=== PATIENT | female | born 1965 | race Caucasian/White ===

== ENCOUNTER 2017-05-23 19:45 | Inpatient (IN) | payer BC ==
[~2017-05-23] VITALS: Ht 165.1 cm; Wt 78.0 kg
[~2017-05-23 19:45] MED LIST: ADVAIR 250-501 EACH INH; ALBUTEROL2.5 MG/0.5 INH; AMBIEN 10 MG TA10 MG PO; BENTYL20 MG PO; CIPROFLOXACIN500 M1 PO; DOXYCYCLINE 10100 MG PO; DUONEB 2.5-0.5 M3 ML INH; HYDROCODONE-AP1 EAC6 PO; LEVAQUIN 500 M500 M2 PO; LEVAQUIN 750 M750 MG PO; NAPROSYN500 MG PO; NORCO 5-325 TA1 EACH PO; PREDNISONE 10 M10 MG PO; PREDNISONE50 MG PO; PROAIR HFA8.5 GM IH; PROMETHAZINE12.5 M1 PO; PROVENTIL HFA6.7 G1 INH; SYMBICORT160 MCG/4. INH; SYNTHROID200 MCG PO; ULTRAM 50MG TAB50 MG PO; VENTOLIN HFA 1818 GM INH; XANAX 0.5 MG0.5 M1 PO; XANAX 0.5 MG0.5 MG PO; ZOLOFT100 MG PO; hydrocodone
[2017-05-23 19:53] VITALS: BP 143/78
[2017-05-23] MEDS ORDERED: SUBOXONE 8 MG-1 EAC3 SUBLING (19:56)
[2017-05-23 20:26] LABS: INFLUENZA A ANTIGEN None Detected (None Detect); INFLUENZA B ANTIGEN None Detected (None Detect)
[2017-05-23 20:26] LABS: ABSOLUTE BASOPHILS 0.1 thou/uL (0.0-0.2); ABSOLUTE EOSINOPHILS 0.1 thou/uL (0.0-0.7); ABSOLUTE LYMPHOCYTES 2.7 thou/uL (0.8-5.3); ABSOLUTE MONOCYTES 0.5 thou/uL (0.0-1.2); ABSOLUTE NEUTROPHILS 4.4 thou/uL (1.6-8.1); BASOPHILS 0.8 %; EOSINOPHILS 1.4 %; HEMATOCRIT 36.8 % (37.0-47.0); HEMOGLOBIN 12.1 gm/dL (12.0-15.0); LYMPHOCYTES 34.3 %; MCH 28.4 pg (26.0-34.0); MCHC 32.9 g/dL (28.0-37.0); MCV 86.4 fL (80.0-100.0); MONOCYTES 6.7 %; MPV 7.8 fl. (7.2-11.1); NUCLEATED RBCS 0 /100WBC; PLATELET COUNT* 271 thou/uL (150-400); POLYS 56.8 %; RBC 4.26 mil/uL (4.20-5.00); RDW-CV 15.2 % (10.5-14.5); WBC 7.8 thou/uL (4.0-11.0)
[2017-05-23 20:32] LABS: CREATININE 0.6 mg/dL (0.6-1.3); POTASSIUM 3.4 mmol/L (3.5-5.1)
[2017-05-23 20:37] LABS: ALBUMIN 3.7 g/dL (3.4-5.0); TOTAL BILIRUBIN 0.4 mg/dL (<0.1-1.0); TOTAL PROTEIN 7.2 g/dL (6.4-8.2)
[2017-05-23 23:49] LABS: BE 3.7 mmol/L (-2 to +3); pH 7.338 (7.340-7.450)
[2017-05-23 23:54] LABS: PO2 163.9 mmHg (75.0-100.0)
[2017-05-24 00:06] VITALS: BP 93/57
[2017-05-24 04:00] VITALS: BP 110/68
[2017-05-24 04:31] LABS: BE 3.4 mmol/L (-2 to +3); PO2 76.5 mmHg (75.0-100.0); pH 7.357 (7.340-7.450)
[2017-05-24 04:32] LABS: PCO2 54.7 mmHg (35.0-45.0)
[2017-05-24 05:12] LABS: HEMATOCRIT 36.5 % (37.0-47.0); MCH 28.1 pg (26.0-34.0); MCHC 32.8 g/dL (28.0-37.0); MCV 85.6 fL (80.0-100.0); MPV 7.9 fl. (7.2-11.1); RBC 4.26 mil/uL (4.20-5.00); RDW-CV 15.1 % (10.5-14.5)
[2017-05-24 05:42] LABS: ALBUMIN 3.8 g/dL (3.4-5.0); CREATININE 0.7 mg/dL (0.6-1.3); POTASSIUM 4.1 mmol/L (3.5-5.1); TOTAL BILIRUBIN 0.3 mg/dL (<0.1-1.0)
[2017-05-24 10:00] VITALS: BP 105/65
[2017-05-24 11:04] VITALS: BP 103/68
[2017-05-24 16:03] VITALS: BP 108/57
[2017-05-24 19:40] VITALS: BP 103/60
[2017-05-25] VITALS: BP 95/54
[2017-05-25 04:54] LABS: HEMATOCRIT 32.5 % (37.0-47.0); HEMOGLOBIN 10.7 gm/dL (12.0-15.0); MCH 28.2 pg (26.0-34.0); MCV 85.3 fL (80.0-100.0); MPV 7.8 fl. (7.2-11.1); NUCLEATED RBCS 0 /100WBC; PLATELET COUNT* 255 thou/uL (150-400); RBC 3.81 mil/uL (4.20-5.00); WBC 9.3 thou/uL (4.0-11.0)
[2017-05-25 04:59] VITALS: BP 96/54
[2017-05-25 05:39] LABS: CALCIUM 8.8 mg/dL (8.5-10.1); CREATININE 0.6 mg/dL (0.6-1.3); POTASSIUM 3.8 mmol/L (3.5-5.1)
[2017-05-25 06:07] LABS: ABSOLUTE LYMPHOCYTES 0.7 thou/uL (0.8-5.3); ABSOLUTE MONOCYTES 0.3 thou/uL (0.0-1.2); ABSOLUTE NEUTROPHILS 8.4 thou/uL (1.6-8.1)
[2017-05-25 06:08] LABS: ANISOCYTOSIS 1+; PLATELET ESTIMATE ADEQUATE; POLYCHROMASIA 1+
[2017-05-25 08:00] VITALS: BP 112/68
--- NOTE | 2017-05-25 10:33 | CON ---
[address] [address] CONSULTATION Name: BATSHEVA PARISH Room: [address] IN M.R.#: [id number] Admission: 05/23/17 Attend Phys: Bhanu Thompson Discharge: Date of : 65 Report #: [id number] THIS REPORT FOR: //name// CC: Nate Balderrama HISTORY OF PRESENT ILLNESS: The patient is a 52-year-old female patient with history of smoking. She told me she started smoking in her 20s and she still smokes daily. She had been told before she has COPD. She presented to the hospital with 1-week history of increasing shortness of breath, cough and wheezes. She always has some wheeze, according to her, but the cough is new. It is becoming productive of yellowish sputum. She feels it is thick and sometimes had difficulty producing any sputum up. She denied any nasal discharge, obstruction or drainage. She denied any sore throat, but she told me she had a nephew who had some symptoms of upper respiratory tract infection recently. She denied any PND or orthopnea. She denied any lower extremity edema. She was in significant respiratory distress when she came into the ER, apparently she was at urgent care and her O2 saturation was in the 70s. When she came to the ER, she was in hypercapnic and hypoxic respiratory failure and she was placed on BiPAP. She told me, in the past she was prescribed oxygen. She still has the oxygen equipment at home that she does not use. PAST MEDICAL HISTORY: COPD, history of smoking; history of insomnia and there is a history of opioid abuse, on Suboxone. PAST SURGICAL HISTORY: She had tubal ligation, bladder surgery, gallbladder surgery and D and C. She had also left ear surgery. SOCIAL HISTORY: She continues to smoke 1 pack per day, does not drink alcohol. Does not abuse drugs currently, but she is on Suboxone. FAMILY HISTORY: Reviewed with the patient, noncontributory. HOME MEDICATIONS: She is on sertraline, levothyroxine, alprazolam. She is on Symbicort, albuterol inhaler, albuterol nebulizer. ALLERGIES: No known drug allergies. REVIEW OF SYSTEMS: Twelve-system reviewed with the patient and negative other than those mentioned above. PHYSICAL EXAMINATION: VITAL SIGNS: When I saw her, she was on oxygen by nasal cannula with saturation 98%, blood pressure 105/55, breathing around 20-25 times a minute, pulse rate of 70, afebrile. Temperature 36.4. [place] [address] CONSULTATION Name: ALDO PARISHLINE ADELINA Room: [address] M.R.#: [id number] Admission: 05/23/17 Attend Phys: Bhanu Thompson Discharge: Date of : 65 Report #: [id number] GENERAL: Anxious lady, awake, alert, speaks in full sentences. Mild respiratory distress, some episodes of cough during my evaluation. HEAD: Normocephalic, atraumatic. EYES: Pupils equal, reactive to light. Extraocular movement intact, not pale, no jaundice. External ear looks healthy and normal. ORAL CAVITY: Mallampati of 2. NECK: Supple. No lymphadenopathy. Trachea central. CHEST: Diminished air movement bilaterally, prolonged expiratory phase with wheezes and some crackles at the bases. HEART: S1, S2. No murmur, no gallop. ABDOMEN: Benign, soft, lax, nontender. EXTREMITIES: Lower extremity: No edema, no calf tenderness. SKIN: Normal for age and race, no rash. PSYCHIATRIC: Mood and affect anxious. Good insight and judgment. NEUROLOGIC: Moving 4 extremities spontaneously. No focal weakness. Cranial nerves grossly normal. LYMPHATICS: No palpable lymph nodes. LABORATORY DATA: She has 2 sets of ABGs. Initially ABG 7.33/ /163. A repeat ABG this morning 7.35/54/76 and this was done on BiPAP. Her creatinine is 0.7, BUN of 7, bicarbonate 33, chloride 100, sodium 141. Her white blood count 7.8, hemoglobin 12.1, platelet 271. Her chest x-ray did not show acute infiltrate, but showed emphysematous changes. IMPRESSION: 1. Acute hypercapnic and hypoxic respiratory failure, most likely chronic. She was prescribed oxygen in the past. 2. Chronic obstructive pulmonary disease exacerbation. 3. Likely viral upper respiratory tract infection. PLAN: 1. At this point, the patient will be on scheduled nebulization treatment. Continue the IV steroids every 8 hours. Continue antibiotics. Continue the BiPAP during sleep and p.r.n. I did licensed mental health counselor the patient over the proper use of the BiPAP. She is apprehensive about continuing to the use at this point, she is still bronchospastic. I anticipate she will need a few more days of inpatient care. 2. Wean oxygen down. Thank you for the consult. We will follow along with you. Discussed with the patient and her . <ELECTRONICALLY SIGNED> By: Kristi Maza MD 05/25/17 1033 1055 [id number] Maza MD /marlene
[2017-05-25 12:00] VITALS: BP 98/60
[2017-05-25 15:21] VITALS: BP 90/48
[2017-05-25 20:10] VITALS: BP 114/70
[2017-05-26 00:06] VITALS: BP 104/63
[2017-05-26 04:06] VITALS: BP 105/56
[2017-05-26 05:18] LABS: ABSOLUTE LYMPHOCYTES 1.1 thou/uL (0.8-5.3); ABSOLUTE MONOCYTES 0.3 thou/uL (0.0-1.2); BASOPHILS 0.3 %; HEMATOCRIT 31.7 % (37.0-47.0); HEMOGLOBIN 10.1 gm/dL (12.0-15.0); LYMPHOCYTES 9.8 %; MCH 27.6 pg (26.0-34.0); MCHC 31.9 g/dL (28.0-37.0); MCV 86.5 fL (80.0-100.0); MONOCYTES 2.5 %; NUCLEATED RBCS 0 /100WBC; PLATELET COUNT* 264 thou/uL (150-400); POLYS 87.4 %; RBC 3.66 mil/uL (4.20-5.00); RDW-CV 15.3 % (10.5-14.5); WBC 11.4 thou/uL (4.0-11.0)
[2017-05-26 06:01] LABS: ALBUMIN 3.1 g/dL (3.4-5.0); CALCIUM 8.4 mg/dL (8.5-10.1); CREATININE 0.6 mg/dL (0.6-1.3); TOTAL BILIRUBIN 0.1 mg/dL (<0.1-1.0)
[2017-05-26 08:00] VITALS: BP 110/65
[2017-05-26] MEDS ORDERED: DUONEB 2.5-0.5 M3 ML INH (10:08)
[2017-05-26] MEDS ORDERED: PROTONIX40 M1 PO (10:11)
[2017-05-26] MEDS ORDERED: LEVAQUIN 500 M500 M2 PO (10:12)
[2017-05-26] MEDS ORDERED: PREDNISONE 10 M10 MG PO (10:15)
[2017-05-26 10:16] VITALS: BP 105/56
== END 2017-05-26 11:30 | disposition home or self-care (01) | DRG 189 ==
LOC: M.ERS 19:45 → M.2W 21:54 → M.TBA-ER 21:54 → M.2W 05-24 00:05
PROVIDERS: Emergency Medicine; Internal Medicine; ADMIT Internal Medicine
PROC: 5A09357 Assistance with Respiratory Ventilation, Less than 24 Consecutive Hours, Continuous Positive Airway Pressure (ICD-10-PCS; principal; 2017-05-24)
DX: J96.22 Acute and chronic respiratory failure with hypercapnia (principal); J44.1 Chronic obstructive pulmonary disease with (acute) exacerbation; J96.21 Acute and chronic respiratory failure with hypoxia; F17.210 Nicotine dependence, cigarettes, uncomplicated; G47.00 Insomnia, unspecified; Z79.899 Other long term (current) drug therapy

== ENCOUNTER 2018-04-28 12:40 | Inpatient (IN) | payer BC ==
[~2018-04-28] VITALS: Ht 160 cm; Wt 79.4 kg
[~2018-04-28 12:40] MED LIST changes: +PROTONIX40 M1 PO; +SUBOXONE 8 MG-1 EAC3 SUBLING
[2018-04-28 12:42] VITALS: BP 126/66
[2018-04-28 13:12] LABS: ABSOLUTE MONOCYTES 0.4 thou/uL (0.0-1.2); ABSOLUTE NEUTROPHILS 1.7 thou/uL (1.6-8.1); BASOPHILS 0.8 %; HEMATOCRIT 40.2 % (37.0-47.0); LYMPHOCYTES 47.8 %; MCH 26.8 pg (26.0-34.0); MCHC 32.3 g/dL (28.0-37.0); MONOCYTES 9.1 %; MPV 7.3 fl. (7.2-11.1); NUCLEATED RBCS 0 /100WBC; PLATELET COUNT* 203 thou/uL (150-400); POLYS 41.3 %; RBC 4.84 mil/uL (4.20-5.00); RDW-CV 15.9 % (10.5-14.5); WBC 4.2 thou/uL (4.0-11.0)
[2018-04-28 13:25] LABS: INFLUENZA A ANTIGEN None Detected (None Detect); INFLUENZA B ANTIGEN None Detected (None Detect)
[2018-04-28 13:30] LABS: ANION GAP 3 mmol/L (7-16); BUN 15 mg/dL (7-18); CALCIUM 8.8 mg/dL (8.5-10.1); CHLORIDE 100 mmol/L (98-107); CO2 36 mmol/L (21-32); CREATININE 0.6 mg/dL (0.6-1.3); GLUCOSE 95 mg/dL (70-99); POTASSIUM 3.8 mmol/L (3.5-5.1); SODIUM 139 mmol/L (136-145); TROPONIN-I LEVEL <0.06 ng/mL (<0.06)
[2018-04-28 13:31] LABS: ALBUMIN 3.7 g/dL (3.4-5.0); ALKALINE PHOSPHATASE 72 U/L (46-116); NT-PRO BRAIN NAT PEPTIDE 71 pg/mL (<300); SGOT 20 U/L (15-37); SGPT 29 U/L (30-65); TOTAL BILIRUBIN 0.4 mg/dL (<0.1-1.0); TOTAL PROTEIN 6.9 g/dL (6.4-8.2)
[2018-04-28 15:06] VITALS: BP 103/63
[2018-04-28 15:37] VITALS: BP 109/75
[2018-04-28 16:38] LABS: BE 7.2 mmol/L (-2 to +3); PCO2 46.9 mmHg (35.0-45.0); pH 7.455 (7.340-7.450)
[2018-04-28 16:41] LABS: PO2 59.7 mmHg (75.0-100.0)
[2018-04-28 20:00] VITALS: BP 109/69
[2018-04-28 22:00] VITALS: BP 128/88
[2018-04-28 23:48] VITALS: BP 115/79
[2018-04-29 04:00] VITALS: BP 125/81
[2018-04-29 08:00] VITALS: BP 112/79
[2018-04-29 11:51] VITALS: BP 117/84
[2018-04-29 16:00] VITALS: BP 103/66
[2018-04-29 20:00] VITALS: BP 112/62
[2018-04-30] VITALS: BP 111/68
[2018-04-30 04:00] VITALS: BP 109/62
--- NOTE | 2018-04-30 07:12 | CON ---
[address] [address] CONSULTATION Name: BATSHEVA PARISH Room: [address] IN ..#: [id number] Admission: 04/28/18 Attend Phys: Celena Christianson MD Discharge: Date of : 65 Report #: [id number] THIS REPORT FOR: //name// CC: Chasity Christianson MD DATE OF SERVICE: 04/29/2018 She is in room #223. HISTORY: The patient is a 53-year-old female, current smoker with COPD. She has oxygen at home. She wears it p.r.n. She has nebulizers at home and takes them as needed. She has been sick for the last 4 days. Denies any sick or ill contacts at least at this time. States she has been working and occasionally at work, somebody will be sick. She states she did not get a flu shot this year. She states she has 1 or 2 exacerbations a year. Last time she was in the hospital was 2 or 3 years ago. Denies any esophageal reflux. Denies much sinus drainage at this time. She states she is chronically short of breath at home. PAST MEDICAL HISTORY: Has a history of COPD, [id number] in nature. Oxygen dependent usually at night. Denies daytime use and also has a history of musculoskeletal lumbar strain, some right hip strain and osteoarthritis. There is a questionable history of opioid use and abuse in the past, has been on Suboxone in the past. Other past medical history includes insomnia, COPD, history of opioid abuse, on Suboxone. PAST SURGICAL HISTORY: Tubal ligation in 1992, cholecystectomy 1990, miscarriage in 1989. OUTPATIENT MEDICATIONS: Included DuoNeb treatments, Protonix, Levaquin 500 mg daily, and a prednisone taper. She has been on buprenorphine and naloxone, Suboxone 8 mg 1 tablet sublingual t.i.d. at home. FAMILY HISTORY: Negative for premature cardiopulmonary disease. SOCIAL HISTORY: She is and lives with her in [place], [place]. Current smoker of 1 pack a day, has a 35-40 pack year history of smoking. Denies any alcohol use, some history of opioid use and abuse in the past. REVIEW OF SYSTEMS: A 14-point review of systems reviewed and negative except for pertinent positives noted in HPI. PHYSICAL EXAMINATION: [place] [address] CONSULTATION Name: BATSHEVA PARISH Room: [address] IN [facility]#: [id number] Admission: 04/28/18 Attend Phys: Celena Christianson MD Discharge: Date of : 65 Report #: [id number] GENERAL: This is a 53-year-old female who is now on BiPAP just recently. She was on 4 liters with sats doing fair at 88-90. She was more short of breath this morning, so she is on BiPAP initially 10/5 and 100%. We then changed her to 60% and 12/6 with a backup rate of 16. VITAL SIGNS: Blood pressure is 112/78, heart rate is 60, respirations were 16-20, not labored on the BiPAP. Temperature is 36.8 degrees. She is 5 feet 4 inches tall, weight 72 kilograms or 160 pounds, BMI is 28. HEENT: Unremarkable. She has a full facemask in place. Mucous membranes are moist. NECK: Supple, without nodes. No increase in jugular venous pressure. CHEST: Shows markedly diminished breath sounds, prolonged expiratory phase, a few rhonchi noted. CARDIOVASCULAR: Regular rate and rhythm without murmur, gallop or rub. Heart rate is 72. ABDOMEN: Soft, obese without masses or megaly. EXTREMITIES: No calf tenderness. No cyanosis, clubbing or edema. NEUROLOGIC: Grossly intact at the bedside. She moves all fours and alert and oriented. No motor deficits. LABORATORY DATA: From 04/28/2018 show hemoglobin 13, white count 4200 with mild lymphocyte predominance, platelet counts 203,000, 41% segmented neutrophils, 48% lymphocytes with an absolute lymphocyte count of 2000. Eosinophils were 0. Sodium is 139, potassium is 3.8, bicarbonate is elevated at 36, BUN 15, creatinine 0.6 and GFR was 105, glucose is 95 and ALT is 29, albumin is 3.7. ABGs yesterday evening on 3 liters showed a pO2 of 60, a pH of 7.45, pCO2 is 47, bicarbonate is 32, sat is 92%. Carboxyhemoglobin was 0.2. Chest x-ray shows COPD, hyperinflation, some lower lobe atelectatic changes. No echo on this patient. IMPRESSION: 1. Moderately severe to severe chronic obstructive pulmonary disease, oxygen dependent, becoming a nebulizer and steroid dependent. 2. Chronic tobacco use. 3. History of opioid use in the past, on Suboxone at this time. PLAN: Would continue same therapy, continuing on with steroids, add montelukast, add some oral albuterol tablets soon when she was eating, keep her n.p.o. for a couple of hours, keep her on a BiPAP at 50% 12/6 with a backup rate of 16. We will recheck some blood gases in the morning. I talked with the nurse, Arthur, and also the respiratory therapist. We will leave her on the floor at this time on BiPAP for the next couple of hours. If she should deteriorate or get worse, we will transfer to the ICU with the idea we would intubate her, possibly a 35% Ventimask might be helpful, keep her CO2 retention down. We will try for 4-5 liters and see where she goes with that. No history of sleep apnea at home, but certainly needs steroids and the antibiotics including azithromycin and ceftriaxone. Flu workup is negative so far. Again, [place] [address] CONSULTATION Name: BATSHEVA PARISH Room: [address] IN ..#: [id number] Admission: 04/28/18 Attend Phys: Celena Christianson MD Discharge: Date of : 65 Report #: [id number] encouraged the patient to discontinue smoking and may need full PFTs as an outpatient and possibly some pulmonary rehab. Thanks again for allowing us to participate in this lady's care. This has been a [address] consult with moderate to severe complexity and medical decision making. <ELECTRONICALLY SIGNED> By: Fredis Madrid MD 04/30/18 0712 1040 [id number] Madrid MD /nt
[2018-04-30 08:00] VITALS: BP 121/77
[2018-04-30 09:23] LABS: BE 5.4 mmol/L (-2 to +3); PCO2 45.6 mmHg (35.0-45.0)
[2018-04-30 09:26] LABS: PO2 53.3 mmHg (75.0-100.0)
--- NOTE | 2018-04-30 14:59 | EKG ---
[place] [address] ELECTROCARDIOGRAM REPORT Name: BATSHEVA PARISH Room: [address] ADM IN .R.#: [id number] Admission: 04/28/18 Attend Phys: Celena Christianson MD Discharge: Date of : 65 Report #: [id number] THIS REPORT FOR: //name// 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 [place] : 1965 Requested By: Magno Machuca Order Number: [id number] MD: Trent Funk Measurements Intervals [place] Rate: 82 P: 26 MA: 44 QRS: -2 QRSD: 91 T: 38 QT: 475 QTc: 555 Interpretive Statements Sinus rhythm Short MA interval Possible anterior infarct, age indeterminate Prolonged QT interval Low voltage QRS Compared to ECG 10/20/2014 12:17:15 Short MA interval now present Myocardial infarct finding now present Prolonged QT interval now present ST (T wave) deviation no longer present Possible ischemia no longer present Electronically Signed On 04-30-2018 14:59:16 CDT by Trent Funk [email or web address] <ELECTRONICALLY SIGNED> By: Trent Funk MD, FACC 04/30/18 1459 1342 1342 Trent Funk MD, FAC /EPI
[2018-04-30 16:24] VITALS: BP 118/71
[2018-04-30 20:00] VITALS: BP 123/87
[2018-05-01] VITALS: BP 116/69
[2018-05-01 04:23] LABS: HEMATOCRIT 33.3 % (37.0-47.0); MCH 26.6 pg (26.0-34.0); MCHC 32.2 g/dL (28.0-37.0); MCV 82.5 fL (80.0-100.0); MPV 7.8 fl. (7.2-11.1); RBC 4.04 mil/uL (4.20-5.00); RDW-CV 16.1 % (10.5-14.5); WBC 12.4 thou/uL (4.0-11.0)
[2018-05-01 04:38] LABS: CALCIUM 8.7 mg/dL (8.5-10.1); CREATININE 0.6 mg/dL (0.6-1.3); MAGNESIUM 2.2 mg/dL (1.8-2.4); POTASSIUM 3.8 mmol/L (3.5-5.1)
[2018-05-01 04:49] LABS: HEMOGLOBIN 10.7 gm/dL (12.0-15.0)
[2018-05-01 06:20] LABS: PCO2 42.1 mmHg (35.0-45.0); PO2 83.4 mmHg (75.0-100.0)
[2018-05-01 07:30] VITALS: BP 122/75
[2018-05-01 11:49] VITALS: BP 114/76
[2018-05-01 18:26] VITALS: BP 127/66
[2018-05-01 20:00] VITALS: BP 131/71
[2018-05-02] VITALS: BP 123/70
[2018-05-02 04:00] VITALS: BP 125/76
[2018-05-02 08:00] VITALS: BP 127/80
[2018-05-02 17:28] VITALS: BP 131/75
[2018-05-02 20:50] VITALS: BP 128/66
[2018-05-03 08:00] VITALS: BP 136/76
[2018-05-03] MEDS ORDERED: IPRAT-ALBUT 0.5-3 ML INH (10:24)
[2018-05-03] MEDS ORDERED: MELATONIN5 M1 PO (10:24)
[2018-05-03] MEDS ORDERED: BROVANA15 MCG/2 M INH (10:24)
[2018-05-03] MEDS ORDERED: SINGULAIR 10 MG10 M1 PO (10:24)
[2018-05-03] MEDS ORDERED: SYNTHROID100 MC1 PO (10:24)
[2018-05-03] MEDS ORDERED: PREDNISONE 10 M10 MG PO (10:24)
[2018-05-03] MEDS ORDERED: BENZONATATE100 MG PO (10:24)
[2018-05-03] MEDS ORDERED: CEFDINIR300 MG PO (10:24)
[2018-05-03 12:39] VITALS: BP 136/76
[2018-05-03 13:20] VITALS: BP 136/76
[2018-05-03 13:42] VITALS: BP 136/76
[2018-05-03 14:11] VITALS: BP 136/76
== END 2018-05-03 14:12 | disposition home health service (06) | DRG 189 ==
LOC: M.ERS 12:40 → M.TBA-ER 13:36 → M.2W 13:36 → M.ORTHSURG 13:36 → M.2W 21:55 → M.ORTHSURG 05-02 21:07
PROVIDERS: Emergency Medicine Emergency Medical Services; Internal Medicine Pulmonary Disease; ADMIT Internal Medicine
PROC: 5A09357 Assistance with Respiratory Ventilation, Less than 24 Consecutive Hours, Continuous Positive Airway Pressure (ICD-10-PCS; principal; 2018-04-29)
PROC: 5A09357 Assistance with Respiratory Ventilation, Less than 24 Consecutive Hours, Continuous Positive Airway Pressure (ICD-10-PCS; 2018-04-30)
PROC: 5A09357 Assistance with Respiratory Ventilation, Less than 24 Consecutive Hours, Continuous Positive Airway Pressure (ICD-10-PCS; 2018-05-01)
PROC: 5A09357 Assistance with Respiratory Ventilation, Less than 24 Consecutive Hours, Continuous Positive Airway Pressure (ICD-10-PCS; 2018-05-02)
DX: J96.21 Acute and chronic respiratory failure with hypoxia (principal); J44.1 Chronic obstructive pulmonary disease with (acute) exacerbation; M16.11 Unilateral primary osteoarthritis, right hip; F17.210 Nicotine dependence, cigarettes, uncomplicated; E03.9 Hypothyroidism, unspecified; G47.00 Insomnia, unspecified; Z90.49 Acquired absence of other specified parts of digestive tract; Z99.81 Dependence on supplemental oxygen; Z79.52 Long term (current) use of systemic steroids; Z91.14 Patient's other noncompliance with medication regimen; Z79.899 Other long term (current) drug therapy

== ENCOUNTER 2020-05-13 08:13 | Emergency (ER) | payer BC ==
[~2020-05-13] VITALS: Ht 157.5 cm; Wt 74.8 kg
[~2020-05-13 08:13] MED LIST changes: +BENZONATATE100 MG PO; +BROVANA15 MCG/2 M INH; +CEFDINIR300 MG PO; +IPRAT-ALBUT 0.5-3 ML INH; +MELATONIN5 M1 PO; +SINGULAIR 10 MG10 M1 PO; +SYNTHROID100 MC1 PO
[2020-05-13 08:38] LABS: ABSOLUTE BASOPHILS 0.1 thou/uL (0.0-0.2); ABSOLUTE EOSINOPHILS 0.2 thou/uL (0.0-0.7); ABSOLUTE LYMPHOCYTES 4.6 thou/uL (0.8-5.3); ABSOLUTE MONOCYTES 0.5 thou/uL (0.0-1.2); ABSOLUTE NEUTROPHILS 3.8 thou/uL (1.6-8.1); BASOPHILS 0.6 %; EOSINOPHILS 2.6 %; HEMATOCRIT 30.4 % (37.0-47.0); HEMOGLOBIN 9.5 gm/dL (12.0-15.0); LYMPHOCYTES 49.7 %; MCHC 31.1 g/dL (28.0-37.0); MCV 83.7 fL (80.0-100.0); MONOCYTES 5.4 %; MPV 7.3 fl. (7.2-11.1); NUCLEATED RBCS 0 /100WBC; PLATELET COUNT* 299 thou/uL (150-400); POLYS 41.7 %; RBC 3.63 mil/uL (4.20-5.00); RDW-CV 16.4 % (10.5-14.5); WBC 9.2 thou/uL (4.0-11.0)
[2020-05-13 08:46] LABS: ANION GAP < 0 mmol/L (7-16); BUN 21 mg/dL (7-18); CALCIUM 8.6 mg/dL (8.5-10.1); CHLORIDE 103 mmol/L (98-107); CO2 41 mmol/L (21-32); CREATININE 0.5 mg/dL (0.6-1.3); GLUCOSE 132 mg/dL (70-99); POTASSIUM 3.6 mmol/L (3.5-5.1); SODIUM 143 mmol/L (136-145)
[2020-05-13 08:48] LABS: APTT 28.2 Seconds (25.0-31.3); PROTIME 10.6 Seconds (9.20-11.50)
[2020-05-13 09:01] LABS: ALBUMIN 3.8 g/dL (3.4-5.0); ALKALINE PHOSPHATASE 68 U/L (46-116); LIPASE 85 U/L (73-393); MAGNESIUM 2.2 mg/dL (1.8-2.4); NT-PRO BRAIN NAT PEPTIDE 38 pg/mL (<300); SGOT 11 U/L (15-37); SGPT 13 U/L (30-65); TOTAL BILIRUBIN 0.2 mg/dL (<0.1-1.0)
[2020-05-13] MEDS ORDERED: PREDNISONE 20 M20 M1 PO (09:07)
[2020-05-13] MEDS ORDERED: ZPAK PO (09:07)
[2020-05-13 10:30] VITALS: BP 112/64
--- NOTE | 2020-05-14 10:03 | EKG ---
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: : 1965 Requested By: Bonifacio Cool Order Number: [id number] MD: Mello Christie Measurements Intervals [place] Rate: 92 P: 80 CO: 152 QRS: 4 QRSD: 68 T: QT: 441 QTc: 546 Interpretive Statements Sinus rhythm Low voltage, precordial leads Nonspecific T abnormalities, lateral leads Prolonged QT interval Baseline wander in lead(s) V5 Compared to ECG 04/28/2018 13:42:17 T-wave abnormality now present Short CO interval no longer present Myocardial infarct finding no longer present Electronically Signed On 05-14-2020 10:03:41 CDT by Mello Christie [email or web address] <ELECTRONICALLY SIGNED> By: Mello Christie MD, [facility] 05/14/20 1003 9 9 Mello Christie MD, [facility] /EPI
== END 2020-05-13 10:31 | disposition home or self-care (01) ==
LOC: M.ERS 08:13
PROVIDERS: Family Medicine
DX: J96.90 Respiratory failure, unspecified, unspecified whether with hypoxia or hypercapnia (principal); Z20.822 Contact with and (suspected) exposure to COVID-19; J44.1 Chronic obstructive pulmonary disease with (acute) exacerbation; J18.9 Pneumonia, unspecified organism; J44.9 Chronic obstructive pulmonary disease, unspecified; F17.210 Nicotine dependence, cigarettes, uncomplicated; Z98.51 Tubal ligation status; Z90.49 Acquired absence of other specified parts of digestive tract; Z79.899 Other long term (current) drug therapy

== ENCOUNTER 2020-05-26 11:53 | Emergency (ER) | payer BC ==
[~2020-05-26] VITALS: Ht 157.5 cm; Wt 74.8 kg
[~2020-05-26 11:53] MED LIST changes: +PREDNISONE 20 M20 M1 PO; +ZPAK PO
[2020-05-26 12:47] VITALS: BP 107/67
== END 2020-05-26 12:49 | disposition home or self-care (01) ==
LOC: M.ERS 11:53
DX: T20.29XA Burn of second degree of multiple sites of head, face, and neck, initial encounter (principal); T31.0 Burns involving less than 10% of body surface; J44.9 Chronic obstructive pulmonary disease, unspecified; F17.210 Nicotine dependence, cigarettes, uncomplicated; X08.8XXA Exposure to other specified smoke, fire and flames, initial encounter; Y93.89 Activity, other specified; Y92.89 Other specified places as the place of occurrence of the external cause; Y99.8 Other external cause status

== ENCOUNTER 2020-07-02 12:58 | Emergency (ER) | payer BC ==
[~2020-07-02] VITALS: Ht 157.5 cm; Wt 72.6 kg
[2020-07-02 13:24] LABS: ABSOLUTE BASOPHILS 0.1 thou/uL (0.0-0.2); ABSOLUTE EOSINOPHILS 0.1 thou/uL (0.0-0.7); ABSOLUTE LYMPHOCYTES 2.3 thou/uL (0.8-5.3); ABSOLUTE MONOCYTES 0.3 thou/uL (0.0-1.2); ABSOLUTE NEUTROPHILS 3.3 thou/uL (1.6-8.1); BASOPHILS 1.3 %; EOSINOPHILS 2.4 %; HEMATOCRIT 31.5 % (37.0-47.0); HEMOGLOBIN 9.8 gm/dL (12.0-15.0); LYMPHOCYTES 37.2 %; MCH 26.3 pg (26.0-34.0); MCHC 31.2 g/dL (28.0-37.0); MCV 84.4 fL (80.0-100.0); MONOCYTES 5.5 %; MPV 7.1 fl. (7.2-11.1); NUCLEATED RBCS 0 /100WBC; PLATELET COUNT* 290 thou/uL (150-400); POLYS 53.6 %; RBC 3.74 mil/uL (4.20-5.00); RDW-CV 16.7 % (10.5-14.5); WBC 6.1 thou/uL (4.0-11.0)
[2020-07-02 13:34] LABS: ANION GAP < 0 mmol/L (7-16); BUN 13 mg/dL (7-18); CALCIUM 8.7 mg/dL (8.5-10.1); CHLORIDE 101 mmol/L (98-107); CO2 42 mmol/L (21-32); CREATININE 0.5 mg/dL (0.6-1.3); GLUCOSE 129 mg/dL (70-99); POTASSIUM 3.5 mmol/L (3.5-5.1); SODIUM 141 mmol/L (136-145)
[2020-07-02 13:36] LABS: APTT 29.9 Seconds (25.0-31.3); PROTIME 10.9 Seconds (9.20-11.50)
[2020-07-02 13:44] LABS: ALBUMIN 3.6 g/dL (3.4-5.0); ALKALINE PHOSPHATASE 72 U/L (46-116); LIPASE 74 U/L (73-393); MAGNESIUM 2.3 mg/dL (1.8-2.4); NT-PRO BRAIN NAT PEPTIDE 12 pg/mL (<300); SGOT 15 U/L (15-37); SGPT 15 U/L (30-65); TOTAL BILIRUBIN 0.2 mg/dL (<0.1-1.0)
[2020-07-02] MEDS ORDERED: XANAX 0.5 MG0.5 MG PO (14:34)
[2020-07-02] MEDS ORDERED: PREDNISONE 20 M20 M1 PO (14:34)
[2020-07-02 14:45] VITALS: BP 109/51
--- NOTE | 2020-07-02 14:53 | EKG ---
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 : 1965 Requested By: Bonifacio Cool Order Number: [id number] MD: Mello Christie Measurements Intervals [place] Rate: 100 P: 76 GA: 160 QRS: 25 QRSD: 78 T: 57 QT: 405 QTc: 523 Interpretive Statements Sinus tachycardia Borderline low voltage, extremity leads RSR' in V1 or V2, right VCD Nonspecific T abnormalities, lateral leads Prolonged QT interval Compared to ECG 05/13/2020 08:20:05 RSR' in V1 or V2 now present Sinus rate has increased T-wave abnormality still present Electronically Signed On 07-02-2020 14:53:08 CDT by Mello Christie [email or web address] <ELECTRONICALLY SIGNED> By: Mello Christie MD, [facility] 07/02/20 1453 1336 1336 Mello Christie MD, [facility] /EPI
== END 2020-07-02 14:47 | disposition home or self-care (01) ==
LOC: M.ERS 12:58
PROVIDERS: Family Medicine
DX: J96.90 Respiratory failure, unspecified, unspecified whether with hypoxia or hypercapnia (principal); Z20.822 Contact with and (suspected) exposure to COVID-19; J44.1 Chronic obstructive pulmonary disease with (acute) exacerbation; F41.9 Anxiety disorder, unspecified; F17.210 Nicotine dependence, cigarettes, uncomplicated

== ENCOUNTER 2020-11-20 12:15 | Emergency (ER) | payer BC ==
[~2020-11-20] VITALS: Ht 162.6 cm; Wt 72.6 kg
[2020-11-20] MEDS ORDERED: XANAX 0.25 MG0.25 MG PO (12:51)
[2020-11-20 13:30] VITALS: BP 116/77
== END 2020-11-20 13:34 | disposition home or self-care (01) ==
LOC: M.ERS 12:15
DX: F41.9 Anxiety disorder, unspecified (principal); F19.90 Other psychoactive substance use, unspecified, uncomplicated; J44.9 Chronic obstructive pulmonary disease, unspecified; F17.210 Nicotine dependence, cigarettes, uncomplicated; Z79.899 Other long term (current) drug therapy